=== PATIENT | female | born 1965 | race Caucasian/White ===

== ENCOUNTER → 2020-07-08 13:35 | Outpatient (CLI) | payer OTHER, SELFPAY ==
[2020-07-08] MEDS: COVID-19 VACC #1, MRNA(MOD) 100 MCG/0.5 ML VIAL IM (13:46)
== END ==
PROVIDERS: Visit Provider Internal Medicine
DX: Z23 Encounter for immunization (principal)
CPT/HCPCS: 0011A; 91301

== ENCOUNTER → 2020-08-06 14:11 | Outpatient (CLI) | payer OTHER, SELFPAY ==
[2020-08-06] MEDS: COVID-19 VACC #2, MRNA(MOD) 100 MCG/0.5 ML VIAL IM (14:21)
== END ==
PROVIDERS: Visit Provider Internal Medicine
DX: Z23 Encounter for immunization (principal)
CPT/HCPCS: 0012A; 91301

== ENCOUNTER 2020-08-06 14:39 | Emergency (ER) | payer OTHER, SELFPAY ==
[2020-08-06 14:50] VITALS: BP 179/84; PULSE 77; RESP 15; TEMP 36.5; O2SAT 99; BMI 37.1
[2020-08-06 17:35] LABS: RBC Urine None Seen (0-5/HPF); WBC Urine None Seen (0-5/HPF)
[2020-08-06 17:43] LABS: Bacteria Urine Occasional (0-1); Squamous Epithelial Cell Urine 5-10 /HPF (0-5/HPF)
[2020-08-06 17:44] LABS: Culture Indicated Urine Cult Not Indicated
--- NOTE | 2020-08-06 17:58 | DI.RAD.S_ITS ---
PROCEDURE: XR ABDOMEN 1V INDICATIONS: Evaluate for SBO TECHNIQUE: One view of the abdomen acquired. COMPARISON: None. FINDINGS: Surgical changes and devices: Clip in the right lower quadrant. Bowel: Scattered small bowel and colonic gas. No dilated loops of bowel seen. Possible small air-fluid level in the left abdomen. Soft tissues: No suspicious abdominal calcifications. Visualized solid organ contours appear normal in size. Bones: No suspicious bony lesions. Mild scoliosis. IMPRESSION: No dilated loops of bowel identified. Possible small air-fluid level in the left abdomen. Favor nonobstructive bowel gas pattern. If clinically indicated CT abdomen pelvis with IV contrast could be performed for further evaluation. Dictated by: Jimy Miranda M.D. on 08/06/2020 at 18:25 Approved by: Jimy Miranda M.D. on 08/06/2020 at 18:26
--- NOTE | 2020-08-06 18:14 | ED_ITS ---
HPI - General Adult General Chief complaint: Abdominal Pain Stated complaint: No BM in a week, feels blocked Time Seen by Provider: 08/06/20 17:57 Source: patient Mode of arrival: Ambulatory Limitations: no limitations History of Present Illness HPI narrative: Patient is a 55-year-old female who is here for evaluation of which she thinks is potentially a bowel blockage. She states that between 10 and 14 days ago she drank Gatorade which gave her which she describes as quite a bit of diarrhea. She stated that afterwards she did not have a bowel movement for couple days and then had very small bowel movements but then for the past week states that she is only able to pass a very small amount of very liquid s tool. She does have some discomfort with going to the bathroom. Describing as abdominal cramping. No vomiting. Has never had any surgeries on her abdomen in the past. She is afebrile. Related Data Previous Rx's Medication Instructions Recorded ciprofloxacin HCl 500 mg PO BID 10 Days #20 tab 08/06/20 metronidazole [Flagyl] 500 mg PO TID 10 Days #30 tab 08/06/20 Allergies Allergy/AdvReac Type Severity Reaction Status Date / Time No Known Drug Allergies Allergy Verified 08/06/20 14:52 Review of Systems Constitutional Constitutional: Denies fatigue and Denies fever(s) Eyes Eyes: Denies change in vision ENT Ears, Nose, Mouth, and Throat: Denies sore throat Cardiovascular Cardiovascular: Denies chest pain and Denies dyspnea Respiratory Respiratory: Denies dyspnea Gastrointestinal Gastrointestinal: Reports abdominal pain, Reports change in bowel habits, Reports diarrhea, Denies nausea and Denies vomiting Genitourinary Genitourinary: Denies dysuria Genitourinary: Denies dysuria and Denies vaginal discharge Musculoskeletal Musculoskeletal: Denies arthralgias and Denies myalgias Integumentary/Breasts Skin/Breast: Denies lesions and Denies rash Neurologic Neurologic: Denies behavioral changes Psychiatric Psychiatric: Denies behavioral changes Endocrine Endocrine: Denies fatigue Hematologic/Lymphatic On Anticoagulants: No Allergic/Immunologic Allergic/Immunologic: Denies urticaria Patient History Medical History Diverticulitis Social History Smoking Status: Former smoker Smoking Status: Former smoker alcohol intake frequency: holidays/special occasions only Substance Use Type: does not use Exam Initial Vital Signs Initial Vital Signs: Vital Signs Temperature 97.7 F 08/06/20 14:50 Pulse Rate 77 08/06/20 14:50 Respiratory Rate 15 08/06/20 14:50 Blood Pressure 179/84 H 08/06/20 14:50 Pulse Oximetry 99 08/06/20 14:50 Const General: cooperative and comfortable Limitations: mental status not altered HENMT Head: normal to inspection and normocephalic Eyes General: appearance normal, both eyes and all related structures Resp Effort & Inspection: normal respiratory effort Auscultation: clear to auscultation bilaterally Cardio Rate: regular rate Rhythm: regular rhythm GI Inspection: non-distended Palpation: soft, No firm, No guarding and No tender Back/Spine/Pelvis Back: No CVA tenderness Skin Lesions: no lesions Rashes: no rashes Neuro General: patient alert, patient awake and patient oriented x3 Cognition: normal cognition Speech: speech normal Extrem General: normal to inspection and capillary refill normal Psych Appearance: grossly normal and well kempt Course Orders Ordered: ED Orders 08/06/20 17:20 Urine Microscopic Stat 08/06/20 17:58 XR abdomen 1V Stat 08/06/20 18:34 CT abdomen pelvis w con Stat 08/06/20 18:55 Complete Blood Count AUTO DIFF Stat Comprehensive Metabolic Panel Stat Lipase Stat Discontinued Medications Ciprofloxacin (Ciprofloxacin 500 Mg Tablet) 500 mg PO NOW ONE Stop: 08/06/20 20:24 Last Admin: 08/06/20 20:29 Dose: 500 mg Documented by: MAYNOR Sodium Chloride (Normal Saline 0.9%) 1,000 mls @ 1,000 mls/hr IV BOLUS ONE Stop: 08/06/20 19:33 Last Infusion: 08/06/20 20:52 Dose: 0 mls/hr Documented by: Admin: 08/06/20 19:05 Dose: 1,000 mls/hr Documented by: MIKHAIL Metronidazole (Metronidazole 500 Mg Tablet) 500 mg PO NOW ONE Stop: 08/06/20 20:24 Last Admin: 08/06/20 20:28 Dose: 500 mg Documented by: MAYNOR Vital Signs Vital signs: Vital Signs - 8 hr 08/06/20 20:45 Pulse Rate 65 Blood Pressure 144/76 H Pulse Oximetry 96 Medical Decision Making Lab Data Lab results reviewed: Yes I reviewed the patient's lab results. Result diagrams: 08/06/20 18:55 08/06/20 18:55 Labs: Lab Results 08/06/20 08/06/20 08/06/20 Range/Units 17:20 18:55 18:55 WBC 7.6 (4.5-11.0) X10^3/uL RBC 4.30 (4.0-5.2) X10^6/uL Hgb 13.6 (12.0-16.0) g/dL Hct 39.2 (36-46) % MCV 91.2 (80-100) fL MCH 31.7 (26-34) PG MCHC 34.8 (30-36) % RDW 14.4 (11.6-14.8) % Plt Count 206 (150-400) X10^3/uL Neut % (Auto) 61.2 (50-75) % Lymph % (Auto) 21.9 L (25-40) % [place] % (Auto) 8.9 (3-14) % Eos % (Auto) 7.1 H (2-4) % Baso % (Auto) 0.9 (0-2) % Neut # (Auto) 4700 (4799-5145) /uL Lymph # (Auto) 1700 (3481-9729) /uL [place] # (Auto) 700 (0-900) /uL Eos # (Auto) 500 H (0-450) /uL Baso # (Auto) 100 (0-100) /uL Sodium 139 (137-145) mmol/L Potassium 3.8 (3.4-5.1) mmol/L Chloride 106 (98-107) mmol/L Carbon Dioxide 24 (22-32) mmol/L BUN 13 (7-17) mg/dL Creatinine 0.59 (0.52-1.04) mg/dL Estimated GFR > 60.0 (>60) mL/min BUN/Creatinine Ratio 22.0 (6-22) Glucose 95 (70-100) mg/dL Calcium 9.4 (8.4-10.2) mg/dL Total Bilirubin 0.7 (0.2-1.3) mg/dL AST 32 (14-36) IU/L ALT 23 (<35) IU/L Alkaline Phosphatase 62 (38-126) U/L Total Protein 6.9 (6.3-8.2) g/dL Albumin 4.5 (3.5-5.0) g/dL Globulin 2.4 (1.7-4.1) g/dL Albumin/Globulin Ratio 1.9 (1.0-2.8) Lipase 43 (23-300) U/L Urine RBC None seen (0-5/HPF) Urine WBC None seen (0-5/HPF) Ur Squamous Epith Cells 5-10 /hpf H (0-5/HPF) Urine Bacteria Occasional (0-1) (None) Ur Culture Indicated? Cult not indicated Urine Dip Bedside Urine Glucose Negative Bedside Urine Bilirubin - Negative Bedside Urine Ketone + 15 Urine Specific [place] 1.015 Bedside Urine Occult Blood - Negative Bedside Urine pH 5.5 Bedside Urine Protein - Negative Bedside Urine Urobilinogen - Negative Bedside Urine Nitrite - Negative Bedside Urine Leukocytes - Negative Esterase Point of care testing: Urine Dip Bedside Urine Glucose Negative Bedside Urine Bilirubin - Negative Bedside Urine Ketone + 15 Urine Specific [place] 1.015 Bedside Urine Occult Blood - Negative Bedside Urine pH 5.5 Bedside Urine Protein - Negative Bedside Urine Urobilinogen - Negative Bedside Urine Nitrite - Negative Bedside Urine Leukocytes - Negative Esterase Imaging Data Abdominal x-ray: Radiologist's Impression: [address] [id number] ReportSigned Patient: OSIEL PETTIT#: [id number]: 1965Acct:[id number]/Sex: 55 / FDate of Service: 08/06/20Loc: EDAccession Number: [id number] Procedure: XR abdomen 1V Ordering Provider: Fidel Lyon D.O. PROCEDURE: XR ABDOMEN 1V INDICATIONS: Evaluate for SBO TECHNIQUE: One view of the abdomen acquired. COMPARISON: None. FINDINGS: Surgical changes and devices: Clip in the right lower quadrant. Bowel: Scattered small bowel and colonic gas. No dilated loops of bowel seen. Possible small air-fluid level in the left abdomen. Soft tissues: No suspicious abdominal calcifications. Visualized solid organ contours appear normal in size. Bones: No suspicious bony lesions. Mild scoliosis. IMPRESSION: No dilated loops of bowel identified. Possible small air-fluid level in the left abdomen. Favor nonobstructive bowel gas pattern. If clinically indicated CT abdomen pelvis with IV contrast could be performed for further evaluation. Dictated by: Jimy Miranda M.D. on 08/06/2020 at 18:25 Approved by: Jimy Miranda M.D. on 08/06/2020 at 18:26 CT scan - abdomen/pelvis: Radiologist's Impression: [address] [id number] Scan ReportSigned Patient: JAILYN PETTITMR#: [id number]: 1965Acct:[id number]/Sex: 55 / FDate of Service: 08/06/20Loc: EDAccession Number: [id number] Procedure: CT abdomen pelvis w con Ordering Provider: Fidel Lyon D.O. PROCEDURE: CT ABDOMEN PELVIS W CON INDICATIONS: Generalized abdominal pain, no BM, concern for SBO TECHNIQUE: After the administration of intravenous contrast, 5 mm thick sections acquired from the diaphragm to the symphysis. 5 mm coronal and sagittal reformats were acquired. For radiation dose reduction, the following was used: automated exposure control, adjustment of mA and/or kV according to patient size. COMPARISON: None. FINDINGS: Image quality: Excellent. ABDOMEN: Lung bases: Lung bases are clear. Heart size is normal. Solid organs: Liver is normal in size and enhancement. Gallbladder is unremarkable. Biliary system is non dilated. Pancreas enhances normally. Spleen is prominent measuring 13.2 cm in craniocaudal dimension, (4/38). No adrenal nodules. Kidneys demonstrate normal size and enhancement, without hydronephrosis. Calcification at the inferior pole the left kidney measuring 1 x 0.4 cm, (2/34). Peritoneum and bowel: Diverticulosis. Question of minimal inflammatory change adjacent to the sigmoid colon diverticuli, (2/75). No free fluid or air. Appendix is absent. No small bowel obstruction. Nodes and vessels: No retroperitoneal or mesenteric adenopathy by size criteria. Aorta and inferior vena cava are normal in size. Miscellaneous: No ventral hernias. PELVIS: Genitourinary: Bladder wall thickness is normal. Miscellaneous: No inguinal hernias or adenopathy. Bones: No suspicious bony lesions. Moderate DDD. No vertebral body compression fractures. IMPRESSION: 1. No small bowel obstruction. 2. Question of mild inflammatory change adjacent to the sigmoid colon diverticuli. This is suspect for mild diverticulitis. No fluid collection or free air. 3. Suspect nonobstructing left kidney stone. Dictated by: Jimy Miranda M.D. on 08/06/2020 at 20:06 Approved by: Jimy Miranda M.D. on 08/06/2020 at 20:11 MDM Narrative Medical decision making narrative: During my initial evaluation of the patient she stated that she was getting quite a bit of abdominal cramping and which she thought was a pressure sensation in her rectum. Before I could perform a rectal exam she had to go to the bathroom. Afterwards she stated that she was able to express a small amount of liquid stool and that the pressure in her rectum had greatly improved in the abdominal cramping and improved as well. She did have a benign abdominal exam. The x-ray did show air-fluid levels but no other signs of an obstruction. Given the severity of her symptoms CT scan was ordered. Does show diverticulitis which very well could be explaining the symptoms that she is having. Will start her on antibiotics. She was given a 1st dose here and the remainder course was electronically transmitted to the pharmacy of her choice. She was given return precautions and follow-up instructions. She expressed understanding and agreement. Discharge Plan Departure Patient Disposition: Home Clinical Impression: Diverticulitis Instructions: DI for Diverticulitis Activity Restrictions/Additional Instructions: Take antibiotics as directed. Be sure to increase your fluid intake. Contact your primary provider for a follow-up. Return to the emergency department for any new or worsening symptoms Prescriptions: New metronidazole [Flagyl] 500 mg tablet 500 mg PO TID 10 Days Qty: 30 RF: 0 ciprofloxacin HCl 500 mg tablet 500 mg PO BID 10 Days Qty: 20 RF: 0
--- NOTE | 2020-08-06 18:34 | DI.CT.S_ITS ---
PROCEDURE: CT ABDOMEN PELVIS W CON INDICATIONS: Generalized abdominal pain, no BM, concern for SBO TECHNIQUE: After the administration of intravenous contrast, 5 mm thick sections acquired from the diaphragm to the symphysis. 5 mm coronal and sagittal reformats were acquired. For radiation dose reduction, the following was used: automated exposure control, adjustment of mA and/or kV according to patient size. COMPARISON: None. FINDINGS: Image quality: Excellent. ABDOMEN: Lung bases: Lung bases are clear. Heart size is normal. Solid organs: Liver is normal in size and enhancement. Gallbladder is unremarkable. Biliary system is non dilated. Pancreas enhances normally. Spleen is prominent measuring 13.2 cm in craniocaudal dimension, (4/38). No adrenal nodules. Kidneys demonstrate normal size and enhancement, without hydronephrosis. Calcification at the inferior pole the left kidney measuring 1 x 0.4 cm, (2/34). Peritoneum and bowel: Diverticulosis. Question of minimal inflammatory change adjacent to the sigmoid colon diverticuli, (2/75). No free fluid or air. Appendix is absent. No small bowel obstruction. Nodes and vessels: No retroperitoneal or mesenteric adenopathy by size criteria. Aorta and inferior vena cava are normal in size. Miscellaneous: No ventral hernias. PELVIS: Genitourinary: Bladder wall thickness is normal. Miscellaneous: No inguinal hernias or adenopathy. Bones: No suspicious bony lesions. Moderate DDD. No vertebral body compression fractures. IMPRESSION: 1. No small bowel obstruction. 2. Question of mild inflammatory change adjacent to the sigmoid colon diverticuli. This is suspect for mild diverticulitis. No fluid collection or free air. 3. Suspect nonobstructing left kidney stone. Dictated by: Jimy Miranda M.D. on 08/06/2020 at 20:06 Approved by: Jimy Miranda M.D. on 08/06/2020 at 20:11
[2020-08-06] MEDS: SODIUM CHLORIDE 0.9% 1,000 ML 1000 ML IV (19:05)
[2020-08-06 19:06] LABS: Add Manual Diff / Slide Review NO; Basophils Absolute Auto 100 /uL (0-100); Basophils Percent Auto 0.9 % (0-2); Eosinophils Absolute Auto 500 /uL (0-450); Eosinophils Percent Auto 7.1 % (2-4); Hematocrit 39.2 % (36-46); Hemoglobin 13.6 g/dL (12.0-16.0); Lymphocytes Absolute Auto 1700 /uL (1100-4500); Lymphocytes Percent Auto 21.9 % (25-40); Mean Corpuscular HGB Conc 34.8 % (30-36); Mean Corpuscular Hemoglobin 31.7 PG (26-34); Mean Corpuscular Volume 91.2 fL (80-100); Monocytes Absolute Auto 700 /uL (0-900); Monocytes Percent Auto 8.9 % (3-14); Neutrophils Absolute Auto 4700 /uL (1500-7000); Neutrophils Percent Auto 61.2 % (50-75); Platelet Count 206 X10^3/uL (150-400); Red Cell Distribution Width 14.4 % (11.6-14.8); White Blood Cell Count 7.6 X10^3/uL (4.5-11.0)
[2020-08-06 19:20] LABS: Alanine Aminotransferase 23 IU/L (<35); Albumin 4.5 g/dL (3.5-5.0); Albumin Globulin Ratio 1.9 (1.0-2.8); Alkaline Phosphatase 62 U/L (38-126); Aspartate Aminotransferase 32 IU/L (14-36); Bilirubin Total 0.7 mg/dL (0.2-1.3); Blood Urea Nitrogen 13 mg/dL (7-17); Calcium 9.4 mg/dL (8.4-10.2); Carbon Dioxide 24 mmol/L (22-32); Chloride 106 mmol/L (98-107); Estimated Glomerular Filt Rate > 60.0 mL/min (>60); Globulin 2.4 g/dL (1.7-4.1); Glucose 95 mg/dL (70-100); HEMOLYSIS 30 (0-50); Lipase 43 U/L (23-300); Potassium 3.8 mmol/L (3.4-5.1); Sodium 139 mmol/L (137-145); Total Protein 6.9 g/dL (6.3-8.2)
[2020-08-06] MEDS: metroNIDAZOLE 500 MG TABLET PO (20:28)
[2020-08-06] MEDS: CIPROFLOXACIN 500 MG TABLET PO (20:29)
[2020-08-06 20:45] VITALS: BP 144/76; PULSE 65; O2SAT 96
== END 2020-08-06 20:55 | disposition home or self-care (01) ==
PROVIDERS: Emergency Medicine; Emergency Provider Emergency Medicine
DX: K57.92 Diverticulitis of intestine, part unspecified, without perforation or abscess without bleeding (principal)
CPT/HCPCS: 36415; 74018; 74177; 80053; 81003; 81015; 83690; 85025; 96360; 96361; 99284; Q9967